=== PATIENT | female | born 1995 | race American Indian/Alaskan Native ===

== ENCOUNTER 2016-05-09 11:46 | Emergency (ER) | payer OTHER ==
[2016-05-09 13:04] VITALS: BP 126/91
--- NOTE | 2016-05-09 13:09 | Emergency Department Report ---
- General Chief Complaint: Upper Respiratory Infection Stated Complaint: SOB Time Seen by Provider: 05/09/16 12:41 Source: patient Mode of arrival: Ambulatory Limitations: No Limitations - History of Present Illness Initial Comments: Patient presents with shortness of breath 2 years, and fever or warmth 1 year. She states it is worse when she runs or is in a hot environment. She does admit to productive cough with yellow sputum. And also nausea and congestion. Denies htn. Admits to chest pain that is worse with her cough. Denies recent travel, leg swelling or pain. Admits to f/u with urgent care in the past and given steroid shot. Admits to seasonal allergies to pollen and dust. MD Complaint: fever, cough, nasal congestion -: Gradual, year(s) Severity: moderate Severity scale (0 -10): 7 Quality: other (tightness) Consistency: intermittent Context: sick contacts Associated Symptoms: fever, chills, nasal congestion, cough Treatments Prior to Arrival: none - Related Data Previous Rx's Medication Instructions Recorded Last Taken Type ALBUTEROL Inhaler [ProAir HFA 2 puff IH QID PRN #1 inhalation 05/09/16 Unknown Rx Inhaler] Montelukast [Singulair] 10 mg PO QPM #30 tablet 05/09/16 Unknown Rx Allergies Allergy/AdvReac Type Severity Reaction Status Date / Time No Known Allergies Allergy Unverified 05/09/16 12:01 ED Review of Systems ROS: Stated complaint: SOB Other details as noted in HPI Constitutional: denies: chills, fever Eyes: denies: eye pain, eye discharge, vision change ENT: congestion. denies: ear pain, throat pain Respiratory: cough, shortness of breath Cardiovascular: denies: chest pain, palpitations Endocrine: no symptoms reported Gastrointestinal: denies: abdominal pain, nausea, diarrhea Genitourinary: denies: urgency, dysuria, discharge Musculoskeletal: denies: back pain, joint swelling, arthralgia Skin: denies: rash, lesions Neurological: denies: headache, weakness, paresthesias ED Past Medical Hx - Past Medical History Previous Medical History?: No - Surgical History Past Surgical History?: No - Social History Smoking Status: Current Every Day Smoker Substance Use Type: None - Medications Home Medications: Home Medications Medication Instructions Recorded Confirmed Last Taken Type ALBUTEROL Inhaler [ProAir HFA 2 puff IH QID PRN #1 inhalation 05/09/16 Unknown Rx Inhaler] Montelukast [Singulair] 10 mg PO QPM #30 tablet 05/09/16 Unknown Rx ED Physical Exam - General Limitations: No Limitations General appearance: alert, in no apparent distress - Head Head exam: Present: atraumatic, normocephalic - Eye Eye exam: Present: normal appearance, PERRL - ENT ENT exam: Present: mucous membranes moist, TM's normal bilaterally - Expanded ENT Exam Expanded Ear exam: Present: normal external inspection Mouth exam: Present: normal external inspection Teeth exam: Present: normal inspection Throat exam: Positive: normal inspection - Neck Neck exam: Present: normal inspection, full ROM. Absent: lymphadenopathy - Respiratory Respiratory exam: Present: normal lung sounds bilaterally. Absent: respiratory distress, wheezes, rales, rhonchi - Cardiovascular Cardiovascular Exam: Present: regular rate, normal rhythm. Absent: systolic murmur, diastolic murmur, rubs, gallop - Neurological Exam Neurological exam: Present: alert, oriented X3 - Psychiatric Psychiatric exam: Present: normal affect, normal mood - Skin Skin exam: Present: warm, dry, intact, normal color. Absent: rash ED Course Vital Signs 05/09/16 05/09/16 12:01 13:04 Temperature 98.8 F Pulse Rate 83 Respiratory 18 Rate Blood Pressure 145/109 Blood Pressure 126/91 [Left] O2 Sat by Pulse 98 Oximetry ED Medical Decision Making - Medical Decision Making Patient presents with chronic cough 2 years. Worsening with exertion. I will give her albuterol inhaler and Singulair. Advised her to follow-up with [facility] for further workup for asthma. - Differential Diagnosis URI, asthma, seasonal allergies Critical care attestation.: If time is entered above; I have spent that time in minutes in the direct care of this critically ill patient, excluding procedure time. ED Disposition Clinical Impression: Chronic cough, Seasonal allergies Disposition: DISCHARGED TO HOME OR SELFCARE Is pt being admited?: No Does the pt Need Aspirin: No Condition: Stable Instructions: Chronic Cough (ED), Allergic Rhinitis (ED) Additional Instructions: Advise f/u with PCP to further evaluate for asthma. Prescriptions: ALBUTEROL Inhaler [ProAir HFA Inhaler] 2 puff IH QID PRN #1 inhalation PRN Reason: Shortness Of Breath Montelukast [Singulair] 10 mg PO QPM #30 tablet Referrals: PRIMARY CARE, [Primary Care Provider] - 3-5 Days [facility] [Outside] - 3-5 Days Forms: Work/School Release Form(ED) Time of Disposition: 13:13
== END 2016-05-09 13:44 | disposition home or self-care (01) ==
LOC: ED 11:46
DX: J30.2 Other seasonal allergic rhinitis (principal); R05 Cough; F17.200 Nicotine dependence, unspecified, uncomplicated
CPT/HCPCS: 99282